=== PATIENT | male | born 1985 | race Caucasian/White ===

== ENCOUNTER 2018-10-05 10:46 | Emergency (ER) | payer MEDICAID, OTHER ==
[~2018-10-05] VITALS: Ht 180.3 cm; Wt 99.0 kg
[2018-10-05 10:49] VITALS: BP 116/70; PULSE 72; RESP 19; Ht 180.3 cm; Wt 99.0 kg
[2018-10-05] MEDS ORDERED: IBUPROFEN 800 MG TAB PO ONE (11:00)
[2018-10-05] MEDS ORDERED: DIPHTH/TET/ACEL PERTUSS (ADULT) 0.5 ML VIAL IM* ONE (11:00)
[2018-10-05] MEDS ORDERED: BACITRACIN 0.5%/ZINC 28.35 GM OINT TOP ONE (11:00)
--- NOTE | 2018-10-05 11:07 | ERD ---
ER Documentation Chief Complaint Chief Complaint LACERATION @ FOREHEAD HPI Patient is a 33 years old male with no known PMHx presenting to the clinic for laceration in-between eyebrow's since 10AM. Patient reports hitting his forehead with pliers. Patient admits to 5/10 pain. Patient cannot recall last tetanus vaccination. ROS All systems reviewed and are negative except as per history of present illness. Medications Home Meds Active Scripts Bacitracin* (Bacitracin Zinc Oint*) 28.35 Gm Oint, 1 APPLIC TOP BID for 7 Days, TUB APPLI TO Prov:FABIEN VAUGHN PA-C 10/05/18 Ibuprofen* (Ibuprofen*) 800 Mg Tablet, 800 MG PO Q8 for 7 Days, TAB Prov:FABIEN VAUGHN PA-C 10/05/18 Allergies Allergies: Coded Allergies: No Known Allergy (Unverified , 10/05/18) PMhx/Soc Medical and Surgical Hx: pt denies Medical Hx, pt denies Surgical Hx Hx Alcohol Use: Yes (social) Hx Substance Use: No Hx Tobacco Use: Yes Smoking Status: Current some day smoker Physical Exam Vitals Vital Signs Date Temp Pulse Resp B/P (MAP) Pulse Ox O2 O2 Flow FiO2 Time Delivery Rate 10/05/18 97.9 72 19 116/70 97 10:49 (85) Physical Exam Const: No acute distress Head: Atraumatic Eyes: Normal Conjunctiva Resp: Clear to auscultation bilaterally Cardio: Regular rate and rhythm, no murmurs Skin: No petechiae or rashes. Small 1 cm skin abrasion in-between eyebrows without active bleeding. Neur: Awake and alert Psych: Normal Mood and Affect Results 24 hrs Current Medications Medications Dose Sig/Lala Start Time Status Last (Trade) Ordered Route PRN Stop Time Admin Dose Reason Admin Bacitracin 1 applic ONCE ONCE 10/05/18 DC (Bacitracin TOP 11:00 0.5%/ Zinc 10/05/18 11:01 Oint) Diphtheria/ 0.5 ml ONCE ONCE 10/05/18 DC 10/05/18 Tetanus/Acell IM* 11:00 11:08 Pertussis 10/05/18 11:01 (Adacel) Ibuprofen 800 mg ONCE ONCE 10/05/18 DC 10/05/18 (Motrin) PO 11:00 11:08 10/05/18 11:01 Procedures/MDM Patient was seen and evaluated for skin abrasion. No sutures required for toda y's visit. Wound cleaning with NS followed by dressing application with bacitracin applied. Patient tolerated the procedure well. Patient is stable and ready for discharge. Departure Diagnosis: Primary Impression: Laceration Condition: Stable Patient Instructions: Laceration, Scalp Referrals: [facility] Additional Instructions: Paciente aconseja volver a Departamento de urgencias inmediatamente para sntomas nuevos o que empeoran . Paciente aconseja posteriores con el PCP en 2-3 jaquez . Paciente verbaliza la comprehensin y est de acuerdo con el tratamiento y el curso de accin. Si el paciente no tiene ninguna de atencin primaria pueden seguir con [facility] [id number] [place] [address] o [facility] + [address] [address] FABIEN VAUGHN PA-C Oct 05, 2018 11:07
[2018-10-05] MEDS ORDERED: BACI28.34 TOP (11:08)
[2018-10-05] MEDS ORDERED: IBUP-1544 PO (11:08)
== END 2018-10-05 11:19 | disposition home or self-care (01) ==
LOC: FTE 10:46
DX: S01.81XA Laceration without foreign body of other part of head, initial encounter (principal); F17.210 Nicotine dependence, cigarettes, uncomplicated; W22.8XXA Striking against or struck by other objects, initial encounter; Y92.9 Unspecified place or not applicable; Z23 Encounter for immunization
CPT/HCPCS: 90715; Z7610; 90471